=== PATIENT | female | born 1980 | race Caucasian/White ===

== ENCOUNTER 2021-12-08 14:21 | Emergency (ER) | payer OTHER ==
[2021-12-08] MEDS ORDERED: SODIUM CHLORIDE 1,000 ML IV STA (15:14)
[2021-12-08] MEDS ORDERED: ACETAMINOPHEN 1000 MG/100 ML BAG IVPB ONE (15:14)
[2021-12-08 15:20] VITALS: BMI 24.2
[2021-12-08 15:45] LABS: BASO % 0.4 % (0-2.0); EOS % 0.3 % (0-4.5); HEMOGLOBIN 13.5 GM/dL (10.7-15.3); LYMPH % 27.6 % (8-40); MCH 30.7 pg (25.7-33.7); MCHC 33.8 g/dl (32.0-36.0); MEAN CELL VOLUME 90.8 fl (80-96); MEAN PLT VOLUME 9.8 fl (7.5-11.1); MONO % 4.5 % (3.8-10.2); NEUT % 67.2 % (42.8-82.8); PLATELET COUNT 292 10^3/uL (134-434); RDW 14.1 % (11.6-15.6)
[2021-12-08 15:57] LABS: ACTIVATED PTT 23.3 SECONDS (25.2-36.5); INR 1.07 (0.83-1.09); PROTHROMBIN TIME (PATIENT) 12.3 SEC (9.7-13.0)
[2021-12-08 16:02] LABS: CALCIUM 9.7 mg/dL (8.5-10.1)
[2021-12-08 16:03] LABS: ALBUMIN 4.6 g/dl (3.4-5.0); BLOOD UREA NITROGEN 12.6 mg/dL (7-18)
[2021-12-08 16:06] LABS: CREATININE 0.9 mg/dL (0.55-1.3)
[2021-12-08 16:07] LABS: BILIRUBIN,TOTAL 0.7 mg/dL (0.2-1)
[2021-12-08 16:08] LABS: TOT PROT 7.8 g/dl (6.4-8.2)
[2021-12-08 19:09] VITALS: TEMP 97.6
[2021-12-08 19:19] LABS: BASO % 0.2 % (0-2.0); HEMATOCRIT 36.3 % (32.4-45.2); HEMOGLOBIN 12.2 GM/dL (10.7-15.3); LYMPH % 8.3 % (8-40); MCH 30.4 pg (25.7-33.7); MCHC 33.5 g/dl (32.0-36.0); MEAN PLT VOLUME 8.4 fl (7.5-11.1); MONO % 3.1 % (3.8-10.2); NEUT % 88.4 % (42.8-82.8); PLATELET COUNT 218 10^3/uL (134-434); RBC 3.99 M/mm3 (3.60-5.2); RDW 14.1 % (11.6-15.6); WHITE BLOOD COUNT 14.4 K/mm3 (4.0-10.0)
[2021-12-08 20:27] VITALS: BP 118/70; PULSE 76
== END 2021-12-08 20:27 | disposition home or self-care (01) ==
LOC: JER 14:21
PROC: 3E0333Z Introduction of Anti-inflammatory into Peripheral Vein, Percutaneous Approach (ICD-10-PCS; principal; 2021-12-08)
PROC: 3E0337Z Introduction of Electrolytic and Water Balance Substance into Peripheral Vein, Percutaneous Approach (ICD-10-PCS; 2021-12-08)
DX: N93.9 Abnormal uterine and vaginal bleeding, unspecified (principal); R10.2 Pelvic and perineal pain
CPT/HCPCS: 36415; 76817-TC; 80053; 84702; 85025; 85610; 85730; 86850; 86900; 86901; 99284-25

== ENCOUNTER 2022-09-24 17:56 | Emergency (ER) | payer OTHER ==
[2022-09-24] MEDS ORDERED: SODIUM CHLORIDE 0.9% 500 ML INFUS.BAG IV ONE (18:06)
[2022-09-24] MEDS ORDERED: FAMOTIDINE 20 MG/50 ML IVPB 20 MG/50 ML MG IVPB ONE (18:06)
[2022-09-24] MEDS ORDERED: EPINEPHrine 1:1,000 0.3 MG/0.3 ML SYR IM ONE (18:06)
[2022-09-24] MEDS ORDERED: ONDANSETRON 4 MG/2 ML VIAL IVPUSH ONE (18:07)
[2022-09-24] MEDS ORDERED: ONDANSETRON 4 MG/2 ML VIAL ONE (18:07)
[2022-09-24 18:10] VITALS: BMI 26.6
[2022-09-24 19:04] LABS: BASO % 0.2 % (0-2.0); EOS % 3.3 % (0-4.5); HEMOGLOBIN 10.8 GM/dL (10.7-15.3); LYMPH % 37.1 % (8-40); MCH 29.1 pg (25.7-33.7); MCHC 32.6 g/dl (32.0-36.0); MEAN CELL VOLUME 89.2 fl (80-96); MEAN PLT VOLUME 8.3 fl (7.5-11.1); MONO % 6.3 % (3.8-10.2); NEUT % 53.1 % (42.8-82.8); PLATELET COUNT 320 10^3/uL (134-434); RDW 13.5 % (11.6-15.6); WHITE BLOOD COUNT 13.7 K/mm3 (4.0-10.0)
[2022-09-24 19:28] LABS: CHLORIDE 107 mmol/L (98-107); SODIUM 140 mmol/L (136-145)
[2022-09-24 19:30] LABS: CALCIUM 8.2 mg/dL (8.5-10.1)
[2022-09-24 19:31] LABS: ALBUMIN 2.5 g/dl (3.4-5.0); BLOOD UREA NITROGEN 7.2 mg/dL (7-18); CO2 24 mmol/L (21-32); GLUCOSE,RANDOM 121 mg/dL (74-106)
[2022-09-24 19:34] LABS: CREATININE 0.5 mg/dL (0.55-1.3); SGOT/AST 16 U/L (15-37); SGPT/ALT 17 U/L (13-61)
[2022-09-24 19:35] LABS: TOT PROT 5.7 g/dl (6.4-8.2)
[2022-09-24 19:36] LABS: BILIRUBIN,TOTAL 0.2 mg/dL (0.2-1)
[2022-09-24 19:37] LABS: ALK PHOS 44 U/L (45-117)
[2022-09-24 19:38] LABS: ANION GAP 8 MMOL/L (8-16)
[2022-09-24] MEDS ORDERED: POTASSIUM CHLORIDE ORAL LIQUID 20 MEQ/15 ML PO ONE (19:45)
[2022-09-24] MEDS ORDERED: POTASSIUM CHLORIDE ORAL LIQUID 20 MEQ/15 ML ONE (20:23)
[2022-09-24] MEDS ORDERED: KCL 10 MEQ IVPB 10 MEQ/100 ML INFUS.BAG IVPB ONE ×3 (20:35→23:21)
[2022-09-24 20:42] LABS: MAGNESIUM 1.7 mg/dL (1.8-2.4)
[2022-09-24] MEDS: KCL 10 MEQ IVPB 10 MEQ/100 ML INFUS.BAG IVPB SCH ×3 (20:43→23:29)
[2022-09-24] MEDS ORDERED: MAGNESIUM SULF 50% (8.12 MEQ/2 ML-1 GM VIAL) IVPB ONE (20:50)
[2022-09-24 21:18] VITALS: BP 112/82; PULSE 98; RESP 18
[2022-09-25] MEDS ORDERED: MAGNESIUM SULFATE IN WATER 2 GM/50 ML IVPB IVPB ONE (00:38)
== END 2022-09-25 01:53 | disposition home or self-care (01) ==
LOC: JER 17:56
PROC: 3E023GC Introduction of Other Therapeutic Substance into Muscle, Percutaneous Approach (ICD-10-PCS; principal; 2022-09-24)
PROC: 3E033GC Introduction of Other Therapeutic Substance into Peripheral Vein, Percutaneous Approach (ICD-10-PCS; 2022-09-24)
PROC: 3E033GC Introduction of Other Therapeutic Substance into Peripheral Vein, Percutaneous Approach (ICD-10-PCS; 2022-09-24)
PROC: 3E033GC Introduction of Other Therapeutic Substance into Peripheral Vein, Percutaneous Approach (ICD-10-PCS; 2022-09-24)
PROC: 3E033GC Introduction of Other Therapeutic Substance into Peripheral Vein, Percutaneous Approach (ICD-10-PCS; 2022-09-24)
DX: O99.512 Diseases of the respiratory system complicating pregnancy, second trimester (principal); T78.2XXA Anaphylactic shock, unspecified, initial encounter; Z3A.18 18 weeks gestation of pregnancy
CPT/HCPCS: 36415; 76815; 80053; 83735; 85025; 93005; 93010; 99285-25; J0171